=== PATIENT | female | born 1950 | race Caucasian/White ===

== ENCOUNTER 2017-10-24 19:32 | Inpatient (IN) | payer MEDICARE, OTHER ==
[~2017-10-24] VITALS: Ht 167.6 cm; Wt 90.7 kg
[2017-10-25] MEDS ORDERED: ATOR80TA PO (00:48)
[2017-10-25] MEDS ORDERED: CLOP75TA15 PO (00:48)
[2017-10-25] MEDS ORDERED: ASPI1CPM PO (00:48)
[2017-10-25] MEDS ORDERED: EZET10TA14 PO (00:48)
[2017-10-25] MEDS ORDERED: SOLI5TAB2 PO (00:48)
[2017-10-25] MEDS ORDERED: CITA20TA16 PO (00:48)
[2017-10-25] MEDS ORDERED: HYDR-3026 PO (00:50)
[2017-10-25] MEDS ORDERED: MAGNESIUM HYDROXIDE 30 ML UDC PO PRN (01:00)
[2017-10-25] MEDS ORDERED: MAG HYDROX/AL HYDROX/SIMETH 30 ML UDC PO PRN (01:00)
[2017-10-25] MEDS ORDERED: LORAZEPAM 0.5 MG TABLET PO PRN (01:00)
[2017-10-25] MEDS ORDERED: ACETAMINOPHEN 325 MG TABLET PO PRN (01:00)
[2017-10-25] MEDS ORDERED: TEMAZEPAM 7.5 MG CAPSULE PO PRN (01:00)
--- NOTE | 2017-10-25 01:07 | NUR ---
PATIENT WAS ADMITTED DIRECTLY FROM [facility] FROM [place], [place] BROUGHT IN BY AMBULANCE/PARAMEDICS VIA GURNEY, PATIENT ARRIVE TO THE UNIT AT 0020. PATIENT ADMITTED ON 5150 HOLD FOR DTO/DTS. UPON FACE TO FACE, PATIENT WAS REPORTED TO HAVE BEEN STANDING IN STREET, BLOCKING TRAFFIC AND MAKING STATEMENTS, " KILL ME." PATIENT WAS ALSO DISHEVELED IN APPEARANCE, SITTING ON A USED RUG ON THE SIDE OF THE ROAD. PATIENT BECAME AGGRESSIVE WHEN ATTEMPTING TO DISCUSS PRECIPITATING FACTORS TO TODAY'S EVENTS, AND UNABLE TO FORMULATE PLAN FOR SAFETY. PATIENT AWAKE, ALERT, ORIENTED X1, CONFUSED, DISORGANIZED, DISORIENTED, YELLING, HYPERVERBAL, UNKEMPT, DISHEVELED, POOR HYGIENE, UNCOOPERATIVE, REFUSING CARE, SKIN ASSESSMENT, VITALS, PHOTO AND MRSA SCREEN DONE. PATIENT SHOWS NO S/S OF ANY PAIN, RESPIRATION EVEN, BREATHING PATTERN NON-LABORED, NO APPARENT DISTRESS NOTED. PATIENT'S DRAG DOWN ANURADHA SIMMS WAS NOTIFIED ABOUT ADMISSION, SHE WILL NOTIFY PATIENT'S RELATIVE. PAGED AND SPOKE TO DR. HERNANDEZ ABOUT MED-RECON. PATIENT'S BELONGINGS WERE INVENTORIED AND CHECKED FOR CONTRABAND. VALUABLES PLACED ON THE SAFE. PATIENT IS UNDER THE CARE OF DR. JAMES AND MEDICAL CARE OF DR. BARAJAS. BED WAS LOCKED AND PLACED ON LOWEST POSITION. WILL CONTINUE TO MONITOR Q 15 MINS. TO MAINTAIN SAFETY.
[2017-10-25] MEDS ORDERED: hydrOXYzine 10 MG TABLET PO PRN (07:30)
[2017-10-25 08:11] VITALS: BP 110/61
[2017-10-25] MEDS ORDERED: EZETIMIBE 10 MG TABLET PO SCH (09:00)
[2017-10-25] MEDS ORDERED: SOLIFENACIN SUCCINATE 5 MG TABLET PO SCH (09:00)
[2017-10-25] MEDS: AGGRENOX(ASA/DIPYRIDAMOLE) 1 CAP CPMP.12HR PO SCH ×2 (09:07→17:00)
[2017-10-25] MEDS: OXYBUTYNIN CHLORIDE 5 MG TABLET PO SCH ×2 (09:08→17:00)
[2017-10-25] MEDS: CLOPIDOGREL BISULFATE 75 MG TABLET PO SCH (09:08)
[2017-10-25] MEDS: ATORVASTATIN 40 MG TABLET PO SCH (09:08)
[2017-10-25] MEDS: OLANZAPINE 2.5 MG TABLET PO SCH ×2 (14:30→17:13)
[2017-10-25 16:21] VITALS: BP 111/78
--- NOTE | 2017-10-25 16:45 | NUR ---
RN NOTES PATIENT REFUSED MEDICATION DESPITE OF EXPLANATION OF RISK AND BENEFITS, OFFERED 3 TIMES, STRONGLY REFUSED.
--- NOTE | 2017-10-25 17:13 | NUR ---
RN NOTES PATIENT REFUSED MEDICATIONS DESPITE OF EXPLANATION OF RISK AND BENEFITS. OFFERED 3 X STRONGLY REFUSED.
[2017-10-25 19:56] VITALS: BP 127/50
[2017-10-26 07:30] LABS: BASOPHILS % (AUTO) 0.8 % (0.0-2.0); EOSINOPHILS % (AUTO) 2.1 % (0.0-6.0); HEMATOCRIT 43 % (33-45); HEMOGLOBIN 14.3 g/dL (11.5-14.8); LYMPHOCYTES # (AUTO) 1.9 /CMM (0.8-4.8); LYMPHOCYTES % (AUTO) 32.1 % (20.0-44.0); MEAN CORPUSCULAR HGB CONC 33 g/dl (31.0-36.0); MEAN CORPUSCULAR VOLUME 92 fL (82-100); MONOCYTES # (AUTO) 0.4 /CMM (0.1-1.30); MONOCYTES % (AUTO) 6.9 % (2.0-12.0); NEUTROPHILS # (AUTO) 3.4 /CMM (1.8-8.9); NEUTROPHILS % (AUTO) 58.1 % (43.0-81.0); PLATELET COUNT (AUTO) 232 /CMM (150-450); RDW COEFFICIENT OF VARIATION 12.2 (11.5-15.0); RED BLOOD CELL COUNT(AUTO) 4.68 MIL/uL (4.0-5.2); WHITE BLOOD COUNT (AUTO) 5.9 K/uL (4.3-11.0)
[2017-10-26 07:55] LABS: ALBUMIN 3.4 g/dL (3.4-5.0); BILIRUBIN,TOTAL 0.4 mg/dL (0.2-1.0); CALCIUM, SERUM 9.4 mg/dL (8.5-10.1); CHOLESTEROL 217 mg/dL (<200); HDL CHOLESTEROL 57 mg/dL (40-60); LDL 137 mg/dL (0-99); POTASSIUM 4.2 mmol/L (3.5-5.1); TOTAL PROTEIN, SERUM 7.3 g/dL (6.4-8.2); TRIGLYCERIDES 138 mg/dL (30-150)
[2017-10-26 08:00] VITALS: BP 157/70
[2017-10-26] MEDS: ATORVASTATIN 40 MG TABLET PO SCH (08:52)
[2017-10-26] MEDS: OLANZAPINE 2.5 MG TABLET PO SCH (08:52)
[2017-10-26] MEDS: AGGRENOX(ASA/DIPYRIDAMOLE) 1 CAP CPMP.12HR PO SCH ×2 (08:52→17:54)
[2017-10-26] MEDS: CLOPIDOGREL BISULFATE 75 MG TABLET PO SCH (08:52)
[2017-10-26] MEDS: OXYBUTYNIN CHLORIDE 5 MG TABLET PO SCH ×2 (08:52→17:54)
[2017-10-26] MEDS: EZETIMIBE 10 MG TABLET PO SCH (14:06)
--- NOTE | 2017-10-26 15:39 | NUR ---
[id number]: GAVE ATIVAN 0.5 MG PO DUE TO INCREASED ANXIETY UPON PT REQUEST AND WILL CONTINUE TO MONITOR FOR EFFECTIVENESS OF MEDICATION
--- NOTE | 2017-10-26 15:54 | NUR ---
[id number]: PT IS ANXIOUS, RESTLESS, IRRITABLE, UNCOOPERATIVE WITH STAFF, YELLING, SCREAMING. DECREASED EXTERNAL STIMULI. ESCORTED PT TO ROOM. NOTIFIED DR. JAMES ABOUT PT'S BEHAVIOR. DR. JAMES ORDERED ZYPREXA 5 MG IM. WILL CONTINUE TO MONITOR FOR EFFECTIVENESS OF MEDICATION
[2017-10-26 16:00] VITALS: BP 115/55
[2017-10-26] MEDS ORDERED: OLANZAPINE 10 MG VIAL IM ONE (16:00)
[2017-10-26] MEDS: OLANZAPINE 5 MG/TAB.RAPDIS PO SCH (17:54)
--- NOTE | 2017-10-26 19:35 | NUR ---
GPS RN NOTE: PATIENT SLEEPING IN BED, NO ACUTE DISTRESS NOTED. BREATHING EVEN AND UNLABORED, NO SOB NOTED. PATIENT CALM AT THIS TIME. WILL CONTINUE TO MONITOR.
[2017-10-26 19:38] VITALS: BP 121/73
[2017-10-27 08:00] VITALS: BP 118/82
[2017-10-27] MEDS: AGGRENOX(ASA/DIPYRIDAMOLE) 1 CAP CPMP.12HR PO SCH ×2 (08:20→16:35)
[2017-10-27] MEDS: EZETIMIBE 10 MG TABLET PO SCH (08:20)
[2017-10-27] MEDS: CLOPIDOGREL BISULFATE 75 MG TABLET PO SCH (08:20)
[2017-10-27] MEDS: OXYBUTYNIN CHLORIDE 5 MG TABLET PO SCH ×2 (08:20→16:35)
[2017-10-27] MEDS: ATORVASTATIN 40 MG TABLET PO SCH (08:20)
[2017-10-27] MEDS: OLANZAPINE 5 MG/TAB.RAPDIS PO SCH ×2 (08:21→16:36)
[2017-10-27] MEDS ORDERED: OLANZAPINE 10 MG VIAL IM ONE (10:00)
--- NOTE | 2017-10-27 10:18 | NUR ---
[id number]: PT IS ANXIOUS, RESTLESS, IRRITABLE, UNCOOPERATIVE WITH STAFF, YELLING, SCREAMING, TAKING OFF [place], THREATENING POSTURE TOWARDS STAFF, VERBALLY ABUSIVE, USING PROFANITIES. DECREASED EXTERNAL STIMULI. ESCORTED PT TO ROOM. NOTIFIED DR. JAMES ABOUT PT'S BEHAVIOR. DR. JAMES ORDERED ZYPREXA 5 MG IM. WILL CONTINUE TO MONITOR FOR EFFECTIVENESS OF MEDICATION
--- NOTE | 2017-10-27 14:31 | NUR ---
Initial Discharge Plan: Pt resides at [address] [facility] [facility] [address] [place] [address] [place] home; by herself. During assessment pt reported wanting to return to her home upon discharge. VICTORIANO contacted Nohemi (sister), and Kristy (sister in law) for collateral information however was unable to speak to any of them, SW left a message. VICTORIANO will follow up to ensure pt is safely and adequately discharged.
[2017-10-27 16:00] VITALS: BP 134/96
[2017-10-27 20:06] VITALS: BP 125/54
[2017-10-28 07:41] LABS: THYROID STIMULATING HORMONE 1.282 uIU/mL (0.358-3.74)
[2017-10-28 08:25] VITALS: BP 141/88
[2017-10-28] MEDS: AGGRENOX(ASA/DIPYRIDAMOLE) 1 CAP CPMP.12HR PO SCH ×2 (09:01→17:00)
[2017-10-28] MEDS: CLOPIDOGREL BISULFATE 75 MG TABLET PO SCH (09:01)
[2017-10-28] MEDS: ATORVASTATIN 40 MG TABLET PO SCH (09:01)
[2017-10-28] MEDS: OXYBUTYNIN CHLORIDE 5 MG TABLET PO SCH ×2 (09:02→17:01)
[2017-10-28] MEDS: OLANZAPINE 5 MG/TAB.RAPDIS PO SCH ×3 (09:02→17:01)
[2017-10-28] MEDS: EZETIMIBE 10 MG TABLET PO SCH (09:02)
[2017-10-28] MEDS ORDERED: CYANOCOBALAMIN 1,000 MCG/ML VIAL SQ ONE (11:00)
--- NOTE | 2017-10-28 14:58 | NUR ---
SW faxed inquiry (face sheet, P&P, H&P, and med list) to [facility], [address], [place] [address]; and fax# , [facility], [address] [place] [address]; and fax # and [facility], [address] [place] [phone]; and fax # on this date. VICTORIANO will follow up to ensure pt is safely discharged.
--- NOTE | 2017-10-28 15:00 | NUR ---
WALKING ABOUT UNIT BRISKLY AND OFTEN,SEEMS NERVOUS.COMPLIANT WITH MEDS.
--- NOTE | 2017-10-28 15:01 | NUR ---
SW spoke to pts family on 10/27/2017, Jakob and mAy Taylor for discharge planning purposes. SW assessed that pt did not have any family in the state of [place]. Pts brother, Jakob also stated that the last time any family had heard from pts was 1 yr ago when their mother . Pts brother reports being unclear about pts mental illness. aned not having seen his sister in over 5 yrs. SW discussed how pts family can support in pts discharge. Pts brother stated that he would not be able to care for his sister, "if she came back to [place]." Sw also gathered that pt would being loosing her mobile home November 20 due to non payment of rent and that pt was looking at an eviction, per manger reports. SW asked pts family to call back with shared services and outsourcing manager's contact information for discharge planning purposes; which they agreed to do so. SW will follow up.
[2017-10-28 16:00] VITALS: BP 106/54
[2017-10-28 20:00] VITALS: BP 122/65
[2017-10-28 20:07] VITALS: BP 122/65
[2017-10-29] MEDS: CLOPIDOGREL BISULFATE 75 MG TABLET PO SCH (08:15)
[2017-10-29] MEDS: ATORVASTATIN 40 MG TABLET PO SCH (08:15)
[2017-10-29] MEDS: AGGRENOX(ASA/DIPYRIDAMOLE) 1 CAP CPMP.12HR PO SCH ×2 (08:15→16:46)
[2017-10-29] MEDS: OLANZAPINE 5 MG/TAB.RAPDIS PO SCH ×3 (08:16→16:46)
[2017-10-29] MEDS: EZETIMIBE 10 MG TABLET PO SCH (08:16)
[2017-10-29 08:51] VITALS: BP 119/58
[2017-10-29] MEDS: OXYBUTYNIN CHLORIDE 5 MG TABLET PO SCH ×2 (08:52→16:46)
--- NOTE | 2017-10-29 15:44 | NUR ---
VICTORIANO received confirmation from Leila from [facility], [address] [place] [address]. [place] [address]; stating that Sriisha would come to [facility] on 11/02/17 in order to9 assess pt.
[2017-10-29 16:00] VITALS: BP 118/67
[2017-10-29 20:00] VITALS: BP 115/67
--- NOTE | 2017-10-29 21:00 | NUR ---
TEMAZEPAM 7.5 MG CAP 1 PO GIVEN. FOR SLEEP.
[2017-10-30 08:00] VITALS: BP 137/64
[2017-10-30] MEDS: OXYBUTYNIN CHLORIDE 5 MG TABLET PO SCH ×2 (08:06→16:51)
[2017-10-30] MEDS: OLANZAPINE 5 MG/TAB.RAPDIS PO SCH ×3 (08:07→16:51)
[2017-10-30] MEDS: EZETIMIBE 10 MG TABLET PO SCH (08:07)
[2017-10-30] MEDS: ATORVASTATIN 40 MG TABLET PO SCH (08:07)
[2017-10-30] MEDS: AGGRENOX(ASA/DIPYRIDAMOLE) 1 CAP CPMP.12HR PO SCH ×2 (08:07→16:51)
[2017-10-30] MEDS: CLOPIDOGREL BISULFATE 75 MG TABLET PO SCH (08:07)
--- NOTE | 2017-10-30 15:43 | NUR ---
RNDeisyCO; Patient attended the Probable Cause Hearing and the shearing machine tender decided to discontinue the 14 day hold because there is no probable cause to believe that the person as a result of mental disorder is a dangert to self or others, nor a gravely disabled adult. Dr Gamez made aware and patient signed the Voluntary admission form. dry house worker is planning for the transportation to go to [facility].
--- NOTE | 2017-10-30 15:45 | NUR ---
VICTORIANO received notification from Charge Nurse, Katarzyna that court had released pt on this date. Pt however agreed to sign a voluntary consent in order to stay on Thursday. Pt understands she is free to leave at any time if she chooses to do so. Victoriano contacted Karen, Api Product Manager from [facility] to arrange for transportation. Per Karen, pt will be picked up om Thursday at 11am. Victoriano will follow up with [facility] on Thursday morning to confirm transportation.
[2017-10-30 16:00] VITALS: BP 120/71
--- NOTE | 2017-10-30 19:28 | NUR ---
GPS RN NOTE, RECEIVED PATIENT AWAKE AND IN BED, NO S/S OR COMPLAINTS OF PAIN AT THIS TIME. PATIENT DISPLAYING NO S/S OF APPARENT DISTRESS AT THIS TIME. PATIENT BREATHING IS UNLABORED WITH EQUAL RISE AND FALL OF THE CHEST. PATIENT IS ALERT AND ORIENTED X 3 ON ROOM AIR WITH A SPO2 96 %. PATIENT IS MED COMPLIANT, DISORGANIZED, HYPERVERBAL AT TIMES, AND NEEDS CONSTANT REDIRECTION. PATIENT DENIES SUICIDE IDEATIONS AND HOMICIDAL IDEATIONS AT THIS TIME. PATIENT ASSISTED WITH TURNING AND REPOSITIONING Q2HR AND PRN FOR COMFORT AND CIRCULATION. PATENT HAS NO NEEDS AT THIS TIME. PATIENT EDUCATED ON THE USE OF THE CALL WALLS. PATIENT BED RAILS UP X 2 FOR SAFETY, BED IS LOCKED AND LOW WILL CONTINUE TO MONITOR AND MAINTAIN SAFETY.
[2017-10-30 20:00] VITALS: BP 107/53
[2017-10-31] MEDS: OXYBUTYNIN CHLORIDE 5 MG TABLET PO SCH ×2 (08:15→16:38)
[2017-10-31] MEDS: AGGRENOX(ASA/DIPYRIDAMOLE) 1 CAP CPMP.12HR PO SCH ×2 (08:15→16:38)
[2017-10-31] MEDS: CLOPIDOGREL BISULFATE 75 MG TABLET PO SCH (08:15)
[2017-10-31] MEDS: EZETIMIBE 10 MG TABLET PO SCH (08:16)
[2017-10-31] MEDS: OLANZAPINE 5 MG/TAB.RAPDIS PO SCH ×3 (08:17→16:38)
[2017-10-31 08:22] VITALS: BP 153/67
[2017-10-31] MEDS: ATORVASTATIN 40 MG TABLET PO SCH (09:00)
[2017-10-31 16:38] VITALS: BP 133/64
[2017-10-31 20:00] VITALS: BP 135/59
--- NOTE | 2017-10-31 20:00 | NUR ---
GPS/MARINE PILOT; RECEIVED PT IN BED SLEEPING. BREATHING NON LABORED. NO S/S OF DISTRESS. BED ON LOWER POSITION AND LOCKED FOR SAFETY. WILL CONTINUE TO MONITOR.
--- NOTE | 2017-11-01 03:15 | NUR ---
GPS/CAR FERRY MASTER; PT WOKE UP ASKING MORE ICE GIVEN. THEN PT WALKING THE HALLWAY BACK AND FORTH SEVERAL TIMES WITH STEADY GAIT.
[2017-11-01 08:37] VITALS: BP 125/58
[2017-11-01] MEDS: CLOPIDOGREL BISULFATE 75 MG TABLET PO SCH (08:57)
[2017-11-01] MEDS: OXYBUTYNIN CHLORIDE 5 MG TABLET PO SCH ×2 (08:57→16:20)
[2017-11-01] MEDS: OLANZAPINE 5 MG/TAB.RAPDIS PO SCH ×3 (08:57→16:20)
[2017-11-01] MEDS: AGGRENOX(ASA/DIPYRIDAMOLE) 1 CAP CPMP.12HR PO SCH ×2 (08:57→16:20)
[2017-11-01] MEDS: EZETIMIBE 10 MG TABLET PO SCH (08:57)
[2017-11-01] MEDS: ATORVASTATIN 40 MG TABLET PO SCH (08:57)
--- NOTE | 2017-11-01 14:20 | NUR ---
ASSUMED CARE: RECEIVED PT. AWAKE IN THE UNIT, IN THE PHONE, RESPONSIVE TO STAFFS. NO SIGN OF DISTRESS AND NO AGITATION NOTED AND WILL CONTINUE TO MONITOR FOR SAFETY.
[2017-11-01 16:20] VITALS: BP 111/66
[2017-11-01 20:00] VITALS: BP 132/67
[2017-11-01 20:32] VITALS: BP 132/67
[2017-11-02] MEDS: AGGRENOX(ASA/DIPYRIDAMOLE) 1 CAP CPMP.12HR PO SCH (08:34)
[2017-11-02] MEDS: OXYBUTYNIN CHLORIDE 5 MG TABLET PO SCH (08:34)
[2017-11-02] MEDS: CLOPIDOGREL BISULFATE 75 MG TABLET PO SCH (08:34)
[2017-11-02] MEDS: ATORVASTATIN 40 MG TABLET PO SCH (08:34)
[2017-11-02] MEDS: EZETIMIBE 10 MG TABLET PO SCH (08:34)
[2017-11-02] MEDS: OLANZAPINE 5 MG/TAB.RAPDIS PO SCH (08:54)
--- NOTE | 2017-11-02 09:38 | NUR ---
VICTORIANO called [facility] and Karen, Assembling Motor Builder from [facility] to confirm pts pick from [facility] at 11:00 am on this date, however was unable to speak to them. VICTORIANO also contacted Dorene, Custodial Worker, . Dorene was unable to provide me with any information and she transferred to Ike ext. VICTORIANO left messages asking for a callback. VICTORIANO will follow up.
[2017-11-02 09:45] VITALS: BP 117/59
--- NOTE | 2017-11-02 11:30 | NUR ---
GPS/RN PATIENT CLEARED FOR DISCHARGE HOME BY DR JAMES AND TANIKA GIORDANO. MEDICATIONS RECONCILED AND PRESCRIPTIONS INCLUDED IN PACKET. MEDICATIONS, EXIT CARE AND AFTER CARE PLAN EXPLAINED TO PATIENT, VERBALIZED UNDERSTANDING. MEDICATIONS FAXED TO PHARMACY ( [facility]) HOME HEALTH WAS ORDERED FOR PATIENT PER TANIKA GIORDANO. D/C PHOTS TAKEN, PATIENT DENIES SI/HI/AH UPON DISCHARGE, PSYCHIATRIC TREATMENT PLANS MET. LEFT UNIT WITH PRIVATE TRANSPORTATION PERSONNEL AND THERAPEUTIC SALES SPECIALIST AT SIDE. Addendum: 11/02/17 at 1504 by MICHEAL MCCARTY RN PATIENTS SISTER WAS NOTIFIED OF DISCHARGE.
== END 2017-11-02 15:19 | disposition home or self-care (01) | DRG 885 ==
LOC: GPS 23:56
PROVIDERS: ADMIT Psychiatry & Neurology Psychosomatic Medicine; ATTEND Psychiatry & Neurology Psychosomatic Medicine
DX: F25.0 Schizoaffective disorder, bipolar type (principal); F01.50 Vascular dementia, unspecified severity, without behavioral disturbance, psychotic disturbance, mood disturbance, and anxiety; F29 Unspecified psychosis not due to a substance or known physiological condition; E78.5 Hyperlipidemia, unspecified; Z91.19 Patient's noncompliance with other medical treatment and regimen; Z86.73 Personal history of transient ischemic attack (TIA), and cerebral infarction without residual deficits
CPT/HCPCS: 36415; 80053-TC; 80061-TC; 82746; 83540-TC; 84443-TC; 85025-TC; J3420; J3490; Q0177